=== PATIENT | male | born 1980 | race African-American/Black ===

== ENCOUNTER 2016-11-09 22:03 | Inpatient (IN) | payer OTHER ==
[2016-11-09] MEDS: SODIUM CHLOR 0.9% 1000 ML INJ 1,000 ML IV SCH (22:45)
[2016-11-09] MEDS ORDERED: ONDANSETRON HCL 4 MG/2 ML VIAL IVP PRN (22:45)
[2016-11-09] MEDS ORDERED: NALOXONE HCL 0.4 MG/ML AMP IV PRN (22:45)
[2016-11-09] MEDS ORDERED: SODIUM CHLORIDE 0.9% FLUSH 10 ML FLUSH IV FLUSH PRN (22:45)
[2016-11-09 23:06] VITALS: BP 163/111; PULSE 70; RESP 20; TEMP 98.3; O2SAT 98
[2016-11-09] MEDS ORDERED: HYDROmorphone HCL PF 1 MG/ML VIAL IV PUSH ONE (23:45)
[2016-11-09] MEDS ORDERED: HYDROmorphone HCL PF 1 MG/ML VIAL IV PUSH PRN (23:45)
--- NOTE | 2016-11-10 00:05 | HHI.HP ---
HPI Service [facility] Hospitalists Primary Care Physician Non-Staff Admission Diagnosis Polycystic kidney disease Diagnoses: Chief Complaint: Back and right side pain severe Travel History International Travel<30 Days: No Contact w/Intl Traveler <30 Da: No Traveled to Known Affected Are: No History of Present Illness Written by Maria Eugenia Rodrigez, acting as scribe for Dr. Benjamin on 11/10/16 at 00: 05. This is a 36-year-old -Dominican male patient with a past medical history which includes hypertension- no longer on medications after weight loss and occasional back pain. Patient's father has polycystic kidney disease and is on hemodialysis. Patient reports over the past 3 days patient's been experiencing pounding/throbbing like back pain and right side pain. Patient reports that after working outside in the rain today his back pain became severe with associated feeling, "woozy," dizzy, weak and chilled. Patient reports he continues to produce clear urine with no evidence of gross bleeding. Patient proceeded to [facility] for further evaluation. Abdomen pelvis CT revealed innumerable cystic lesions most characteristic for polycystic kidney disease with more complex heterogeneous lesion just nonspecific which could represent a cyst with hemorrhage in the right kidney. Patient was then transferred to [facility] for further evaluation and treatment. Patient also describes mid epigastric pain worse when he is hungry which is been going on for months and possibly longer. Patient unable to elaborate on the description of the, "hunger pains." Patient reports this is relieved by drinking milk. Patient denies ever having a formal GI evaluation no history of upper endoscopy. Patient denies chest pain, shortness of breath, nausea, vomiting, diarrhea, constipation or fevers. Review of Systems Except as stated in HPI: all other systems reviewed are Neg Past Family Social History Past Medical History hypertension- no longer on medications after weight loss and occasional back pain Past Surgical History Denies surgery in the past Reported Medications Does not take any medications at home on a daily basis Allergies: Coded Allergies: No Known Allergies (Unverified , 11/09/16) Active Ordered Medications Current Medications Medications (Trade) Dose Ordered Sig/Jagruti Route Start Time Stop Time Status Last Admin (NS 1000 ml Inj) 1,000 ml @ 84 mls/hr [id number] IV 11/09/16 22:45 (NS Flush) 2 ml UNSCH PRN IV FLUSH 11/09/16 22:45 (NS Flush) 2 ml BID IV FLUSH 11/10/16 09:00 (Zofran Inj) 4 mg Q6H PRN IVP 11/09/16 22:45 (Narcan Inj) 0.4 mg UNSCH PRN IV 11/09/16 22:45 (Dilaudid Pf Inj) 1 mg ONCE ONCE IV PUSH 11/09/16 23:45 11/09/16 23:46 (Dilaudid Pf Inj) 0.5 mg Q4H PRN IV PUSH 11/09/16 23:45 Family History Patient reports diabetes mellitus runs in his family Patient also reports polycystic kidney disease runs in his family Father has polycystic kidney disease and is on dialysis Social History Patient smokes one pack cigarettes per day Reports Rare EtOH use, "once in a blue tanner" Physical Exam Vital Signs Vital Signs Date Time Temp Pulse Resp B/P Pulse Ox O2 Delivery O2 Flow Rate FiO2 11/09/16 23:06 98.3 70 20 163/111 98 Physical Exam GENERAL: This is a well-nourished, well-developed patient, appears painful SKIN: No rashes, ecchymoses or lesions. Cool and dry. HEAD: Atraumatic. Normocephalic. No temporal or scalp tenderness. EYES: Extraocular motions intact. No scleral icterus. No injection or drainage. CARDIOVASCULAR: Regular rate and rhythm without murmurs, gallops, or rubs. RESPIRATORY: Clear to auscultation. Breath sounds equal bilaterally. No wheezes , rales, or rhonchi. GASTROINTESTINAL: Abdomen soft, tender in the epigastric area and right upper quadrant, nondistended. GENITOURINARY: Positive CVA tenderness right greater than left MUSCULOSKELETAL: Extremities without clubbing, cyanosis, or edema. No joint tenderness, effusion, or edema noted. No calf tenderness. Negative Homans sign bilaterally. NEUROLOGICAL: Awake and alert. No focal deficits. She did. Motor and sensory grossly within normal limits. Five out of 5 muscle strength in all muscle groups. Normal speech. Assessment and Plan Problem List: (1) Polycystic kidney disease ICD Code: Q61.3 Status: Acute Assessment and Plan This is a 36-year-old -Dominican male patient presents with 3 days patient's been experiencing pounding/throbbing like back pain and right side pain. Abdomen pelvis CT revealed innumerable cystic lesions most characteristic for polycystic kidney disease with more complex heterogeneous lesion just nonspecific which could represent a cyst with hemorrhage in the right kidney. Patient's father also has polycystic kidney disease and is on hemodialysis Polycystic kidney disease- newly diagnosed CT abdomen pelvis reviewed by me and reveals the kidneys are mildly prominent with innumerable cystic lesions most characteristic of polycystic kidney disease. In the left kidney there is a high density lesion which is nonspecific but is most characteristic of a complex cyst with hemorrhage or protein. In the right kidney there is a more complex heterogeneous lesion which is nonspecific. This could represent a cyst with hemorrhage. A renal cell carcinoma is less likely but cannot be excluded. These lesions could be further evaluated with a nonemergent outpatient MRI exam with and without contrast. Small monitored in bilateral renal calculi. No specific pattern which may represent an ileus or gastroenteritis. Multiple cystic lesions throughout the liver Dilaudid IV for pain UA reviewed and revealed small amount of occult blood Consult nephrology May consider urology consultation Discussed with patient and at bedside IV fluids Dyspepsia start Protonix May need further outpatient workup and evaluation Hypertension- likely related to pain Will initiate Dilaudid for pain and monitor blood pressure trend DVT prophylaxis with SCDs Discussed with the care provider, nursing and patient Physician Certification 2 Midnight Certification Type: Admission for Inpatient Services Order for Inpatient Services The services are ordered in accordance with Medicare regulations or non- Medicare payer requirements, as applicable. In the case of services not specified as inpatient-only, they are appropriately provided as inpatient services in accordance with the 2-midnight benchmark. Estimated LOS (days): 3 days is the estimated time the patient will need to remain in the hospital, assuming treatment plan goals are met and no additional complications. Post-Hospital Plan: Home Maria Eugenia Rodrigez Nov 10, 2016 00:05
[2016-11-10] MEDS: PANTOPRAZOLE SOD 40 MG DELAYED RELEASE TAB PO SCH ×2 (01:08→08:54)
[2016-11-10 05:17] LABS: AUTOMATED NEUTROPHIL # 8.6 TH/MM3 (1.8-7.7); BASOPHIL % 0.3 % (0.0-2.0); EOSINOPHIL # 0.3 TH/MM3 (0-0.4); EOSINOPHIL % 2.3 % (0.0-4.0); HEMATOCRIT 40.4 % (39.0-51.0); HEMO FLAGS DIFF FINAL; LYMPH % 22.1 % (9.0-44.0); LYMPHOCYTE # 3.1 TH/MM3 (1.0-4.8); MEAN CELL VOLUME 71.5 FL (80.0-100.0); MEAN CORPUSCULAR HEMOGLOBIN 23.2 PG (27.0-34.0); MEAN CORPUSCULAR HGB CONC 32.5 % (32.0-36.0); MONO % 14.4 % (0.0-8.0); NEUT % 60.9 % (16.0-70.0); PLATELET COUNT 240 TH/MM3 (150-450); RED BLOOD COUNT 5.65 MIL/MM3 (4.50-5.90); RED CELL DISTRIBUTION WIDTH 16.2 % (11.6-17.2)
[2016-11-10 05:40] LABS: BICARBONATE 28.1 MEQ/L (21.0-32.0)
[2016-11-10 08:00] VITALS: BP 152/92; PULSE 68; RESP 18; TEMP 97.4; O2SAT 68
[2016-11-10] MEDS ORDERED: TRAM50TA PO (08:55)
[2016-11-10] MEDS ORDERED: traMADol/ACETAMINOPHEN 37.5/325 1 TAB PO PRN (09:00)
[2016-11-10] MEDS ORDERED: SODIUM CHLORIDE 0.9% FLUSH 10 ML FLUSH IV FLUSH SCH (09:00)
[2016-11-10] MEDS ORDERED: ACETAMINOPHEN 500 MG CPLT PO PRN (09:00)
[2016-11-10] MEDS: SODIUM CHLOR 0.9% 1000 ML INJ 1,000 ML IV SCH (10:40)
[2016-11-10] MEDS ORDERED: LOSARTAN 25 MG TAB PO SCH (10:45)
--- NOTE | 2016-11-10 10:50 | PD.CONS ---
HPI Service Nephrology Consult Requested By Reason for Consult CKD stage III, ADPKD Primary Care Physician Non-Staff History of Present Illness Mr. Covarrubias has been admitted with right sided flank pain. He has not seen gross hematuria. There is history of subjective fever and chills. Some nausea. His father had polycystic kidney disease, and is on dialysis. CT obtained revealed innumerable cysts in the kidneys and liver. He also has ADPKD, patient reports that he was unaware of this diagnosis. Review of Systems Constitutional: COMPLAINS OF: Fatigue, Fever Cardiovascular: DENIES: Chest pain, Palpitations Gastrointestinal: COMPLAINS OF: Abdominal pain, Nausea Integumentary: DENIES: Abnormal pigmentation Neurologic: DENIES: Abnormal gait, Headache, Localized weakness Psychiatric: COMPLAINS OF: Anxiety Past Family Social History Allergies: Coded Allergies: No Known Allergies (Unverified , 11/09/16) Past Medical History possible hypertension. CKD: patient was not aware however. Reported Medications none at home. Active Ordered Medications Current Medications Medications (Trade) Dose Ordered Sig/Jagruti Route Start Time Stop Time Status Last Admin (NS 1000 ml Inj) 1,000 ml @ 84 mls/hr [id number] IV 11/09/16 22:45 11/09/16 22:45 (NS Flush) 2 ml UNSCH PRN IV FLUSH 11/09/16 22:45 (NS Flush) 2 ml BID IV FLUSH 11/10/16 09:00 (Zofran Inj) 4 mg Q6H PRN IVP 11/09/16 22:45 (Narcan Inj) 0.4 mg UNSCH PRN IV 11/09/16 22:45 (Protonix) 40 mg DAILY PO 11/10/16 00:30 11/10/16 08:54 (Phazyme Chew) 125 mg Q8HR PO 11/10/16 10:00 (Ultracet 37.5-325 Mg) 1 tab Q4H PRN PO 11/10/16 09:00 (Tylenol) 500 mg Q6H PRN PO 11/10/16 09:00 (Lactinex Pkt) 1 gm TID PO 11/10/16 09:00 Family History strong family history of ADPKD on his father's side. Grandmother had it as well , father is on HD. Social History . Lives in [place]. Smokes 1 ppd of cigarettes. No ETOH. Physical Exam Vital Signs Vital Signs Date Time Temp Pulse Resp B/P Pulse Ox O2 Delivery O2 Flow Rate FiO2 11/10/16 08:00 97.4 68 18 152/92 68 11/10/16 05:08 18 11/09/16 23:06 98.3 70 20 163/111 98 Physical Exam GENERAL: awake, alert, not in distress. SKIN: Warm and dry. HEAD: Normocephalic. EYES: No scleral icterus. No injection or drainage. NECK: Supple, trachea midline. No JVD or lymphadenopathy. CARDIOVASCULAR: Regular rate and rhythm without murmurs, gallops, or rubs. RESPIRATORY: Breath sounds equal bilaterally. No accessory muscle use. GASTROINTESTINAL: Abdomen soft, non-tender, nondistended. MUSCULOSKELETAL: No cyanosis, or edema. BACK: Nontender without obvious deformity. No CVA tenderness. Laboratory Laboratory Tests Test 11/10/16 04:13 White Blood Count 14.0 Red Blood Count 5.65 Hemoglobin 13.1 Hematocrit 40.4 Mean Corpuscular Volume 71.5 Mean Corpuscular Hemoglobin 23.2 Mean Corpuscular Hemoglobin 32.5 Concent Red Cell Distribution Width 16.2 Platelet Count 240 Mean Platelet Volume 8.3 Neutrophils (%) (Auto) 60.9 Lymphocytes (%) (Auto) 22.1 Monocytes (%) (Auto) 14.4 Eosinophils (%) (Auto) 2.3 Basophils (%) (Auto) 0.3 Neutrophils # (Auto) 8.6 Lymphocytes # (Auto) 3.1 Monocytes # (Auto) 2.0 Eosinophils # (Auto) 0.3 Basophils # (Auto) 0.0 CBC Comment DIFF FINAL Differential Comment Sodium Level 141 Potassium Level 4.0 Chloride Level 105 Carbon Dioxide Level 28.1 Anion Gap 8 Blood Urea Nitrogen 21 Creatinine 1.84 Estimat Glomerular Filtration 50 Rate Random Glucose 90 Calcium Level 8.2 Result Diagram: 11/10/1641211/10/16412 Assessment and Plan Problem List: (1) ADPKD (autosomal dominant polycystic kidney disease) Plan: I had a detailed discussion about the condition, its course, management options. Patient was made aware of the fact that renal dysfunction has a tendency to progress and many would require renal transplant or dialysis. Obviously there is no need for dialysis at this time. I would recommend reducing Caffeine use. Avoid NSAIDs. Start losartan. He likely has hemorrhagic cyst on the right side. Continue with pain control. He may need narcotics for some days. No need for continued hospitalization for that reason. He was advised to drink plenty of water. Moderate restriction in dietary protein intake was recommended. (2) Essential (primary) hypertension Plan: Start Losartan. Some experts believe that BP should be aggressively managed with goal of 125/75 or less. JESSE inhibitors/ARB preferred. Assessment and Plan We will see him as needed. He can be discharged from renal standpoint. He should followup with geospatial technologist on a regular basis. Sid Delgadillo MD Nov 10, 2016 10:50
[2016-11-10 12:00] VITALS: BP 152/93; PULSE 64; RESP 18; TEMP 98.2; O2SAT 100
[2016-11-10] MEDS: LACTOBACILLUS ACIDOPHILUS 1 GM PACKET PO SCH ×3 (12:15→18:00)
[2016-11-10] MEDS: SIMETHICONE 125 MG CHEWABLE TAB PO SCH ×2 (12:15→13:18)
[2016-11-10 14:55] VITALS: TEMP 97.5
[2016-11-10 16:00] VITALS: BP 155/94; PULSE 57; RESP 18; TEMP 97.5; O2SAT 65
[2016-11-10] MEDS ORDERED: COZA25TA PO (16:05)
[2016-11-10] MEDS ORDERED: SIME1CHW11 PO (16:05)
[2016-11-10] MEDS ORDERED: LACTG PO (16:05)
--- NOTE | 2016-11-10 16:07 | HHI.DCPOC ---
Discharge Care Plan Diagnosis: (1) Polycystic kidney disease (2) Essential (primary) hypertension (3) Renal cyst, [place], hemorrhage Goals to Promote Your Health * To prevent worsening of your condition and complications * To maintain your health at the optimal level Directions to Meet Your Goals Take your medications as prescribed Follow your dietary instruction Follow activity as directed Keep your appointments as scheduled Take your immunizations and boosters as scheduled If your symptoms worsen call your PCP, if no PCP go to Urgent Care Center or Emergency Room Smoking is Dangerous to Your Health. Avoid second hand smoke Call the 24-hour hour crisis hotline for domestic abuse at Bernice Fagan MD Nov 10, 2016 16:07
--- NOTE | 2016-11-10 16:10 | HHI.DS ---
Discharge Summary Admission Date Nov 09, 2016 at 22:13 Discharge Date: Nov 10, 2016 Admitting Diagnosis Polycystic kidney disease (1) Polycystic kidney disease ICD Code: Q61.3 Diagnosis: Principal (2) Essential (primary) hypertension ICD Code: I10 Diagnosis: Principal (3) Renal cyst, [place], hemorrhage ICD Code: N28.89 Diagnosis: Principal Procedures none Brief History - From Admission Written by Maria Eugenia Rodrigez, acting as scribe for Dr. Benjamin on 11/10/16 at 00: 05. This is a 36-year-old -B[place] male patient with a past medical history which includes hypertension- no longer on medications after weight loss and occasional back pain. Patient's father has polycystic kidney disease and is on hemodialysis. Patient reports over the past 3 days patient's been experiencing pounding/throbbing like back pain and right side pain. Patient reports that after working outside in the rain today his back pain became severe with associated feeling, "woozy," dizzy, weak and chilled. Patient reports he continues to produce clear urine with no evidence of gross bleeding. Patient proceeded to [facility] for further evaluation. Abdomen pelvis CT revealed innumerable cystic lesions most characteristic for polycystic kidney disease with more complex heterogeneous lesion just nonspecific which could represent a cyst with hemorrhage in the right kidney. Patient was then transferred to [facility] for further evaluation and treatment. Patient also describes mid epigastric pain worse when he is hungry which is been going on for months and possibly longer. Patient unable to elaborate on the description of the, "hunger pains." Patient reports this is relieved by drinking milk. Patient denies ever having a formal GI evaluation no history of upper endoscopy. Patient denies chest pain, shortness of breath, nausea, vomiting, diarrhea, constipation or fevers. CBC/BMP: 11/10/16 0413 11/10/16 0413 Significant Findings Laboratory Tests Test 11/10/16 04:13 White Blood Count 14.0 TH/MM3 (4.0-11.0) Mean Corpuscular Volume 71.5 FL (80.0-100.0) Mean Corpuscular Hemoglobin 23.2 PG (27.0-34.0) Monocytes (%) (Auto) 14.4 % (0.0-8.0) Neutrophils # (Auto) 8.6 TH/MM3 (1.8-7.7) Monocytes # (Auto) 2.0 TH/MM3 (0-0.9) Blood Urea Nitrogen 21 MG/DL (7-18) Creatinine 1.84 MG/DL (0.60-1.30) Estimat Glomerular Filtration 50 ML/MIN (>89) Rate Calcium Level 8.2 MG/DL (8.5-10.1) PE at Discharge GENERAL: in NAD SKIN: Warm and dry. HEAD: Normocephalic. EYES: No scleral icterus. No injection or drainage. NECK: Supple, trachea midline. No JVD or lymphadenopathy. CARDIOVASCULAR: Regular rate and rhythm without murmurs, gallops, or rubs. RESPIRATORY: Breath sounds equal bilaterally. No accessory muscle use. GASTROINTESTINAL: Abdomen soft, non-tender, nondistended. Patient just felt bloated. BACK: Nontender without obvious deformity. No CVA tenderness. Pt update on day of discharge Follow-up for abdominal pain Patient stated that pain has improved a lot with morphine. He stated that he now feels bloated. He denies any lower back pain anymore. Patient stated that he thinks that he caught viral 2 days ago and had some diarrhea. Otherwise denies any nausea or vomiting. He remains afebrile. Hospital Course This is a 36-year-old -Baham[place] male patient presents with 3 days patient's been experiencing pounding/throbbing like back pain and right side pain. Abdomen pelvis CT revealed innumerable cystic lesions most characteristic for polycystic kidney disease with more complex heterogeneous lesion just nonspecific which could represent a cyst with hemorrhage in the right kidney. Patient's father also has polycystic kidney disease and is on hemodialysis Polycystic kidney disease- newly diagnosed CT abdomen pelvis reviewed by me and reveals the kidneys are mildly prominent with innumerable cystic lesions most characteristic of polycystic kidney disease. In the left kidney there is a high density lesion which is nonspecific but is most characteristic of a complex cyst with hemorrhage or protein. In the right kidney there is a more complex heterogeneous lesion which is nonspecific. This could represent a cyst with hemorrhage. A renal cell carcinoma is less likely but cannot be excluded. These lesions could be further evaluated with a nonemergent outpatient MRI exam with and without contrast. Small monitored in bilateral renal calculi. No specific pattern which may represent an ileus or gastroenteritis. Multiple cystic lesions throughout the liver Router Operator Radial consulted in regards to diagnosis. Pain most likely due to a hemorrhagic cyst. Router Operator Radial started patient on losartan.. Stated that patient can be discharged and follow-up as outpatient. Dyspepsia This seems to be more due to bloating which may have a virally etiology. Patient was started on simethicone when necessary and Lactinex. Hypertension- patient started on losartan. Pt Condition on Discharge: Good Discharge Disposition: Discharge Home Discharge Time: > 30 minutes Discharge Instructions DIET: Follow Instructions for: Heart Healthy Diet Activities you can perform: Regular-No Restrictions Follow up Referrals: Nephrology - 11/24/16 Dr. Sid Delgadillo PCP Follow-up - 1 Week New Medications: Tramadol (Tramadol) 50 Mg Tab 50 MG PO Q4H PRN moderate to severe pain #20 Ref 0 TAB Lactobacillus Acidophilus (Floranex) 1 Gm Pkt 1 GM PO TID bloating Days 0 Ref 0 PACK Losartan (Cozaar) 25 Mg Tab 25 MG PO DAILY hypertension #30 Ref 0 TAB Simethicone (Gas Relief Maximum Streng) 125 Mg Chw 125 MG PO Q8HR PRN GAS RETENTION #20 Ref 0 Bernice Arredondo MD Nov 10, 2016 16:10
== END 2016-11-10 17:45 | disposition home or self-care (01) | DRG 700 ==
LOC: NEDDLT 22:03 → N07A 22:13
PROVIDERS: ADMIT Internal Medicine; ATTEND Internal Medicine
DX: Q61.2 Polycystic kidney, adult type (principal); N18.3 Chronic kidney disease, stage 3 (moderate); I10 Essential (primary) hypertension; F17.210 Nicotine dependence, cigarettes, uncomplicated; R10.13 Epigastric pain
CPT/HCPCS: 74177; 80048; 80053; 81001; 83690; 85025; 85610; 85730; 96374; 96375; C9113; J1170; J2405; J2543; J7030; Q9967